=== PATIENT | male | born 1980 | race African-American/Black ===

== ENCOUNTER 2018-12-11 09:35 | Emergency (ER) | payer SELFPAY ==
[2018-12-11] MEDS ORDERED: IBUPROFEN 600 MG TABLET PO ONE (09:57)
[2018-12-11] MEDS ORDERED: BUTALB/ACETAMINOPHEN/CAFFEINE 1 TAB EACH PO ONE (09:57)
--- NOTE | 2018-12-11 10:05 | ER Document Report ---
HPI - HPI Time Seen by Provider: 12/11/18 09:57 Pain Level: 4 Notes: Patient is a [id number] male with past medical history of migraines presenting with 2-day migraine. Patient reports the migraine started the same as his usual headaches. He states that he usually takes Excedrin however this time is not knocked out the headache. He reports mild nausea, photophobia and phonophobia. He states that he usually gets these symptoms with his migraines. He denies any fever or chills, denies any neck pain. - REPRODUCTIVE Reproductive: DENIES: : - DERM Skin Color: Normal, [place] Past Medical History - General Information source: Patient - Social History Smoking Status: Never Smoker Frequency of alcohol use: None Drug Abuse: None Family History: Reviewed & Not Pertinent Patient has suicidal ideation: No Patient has homicidal ideation: No - Past Medical History Cardiac Medical History: Denies: Hx Coronary Artery Disease, Hx Heart Attack, Hx Hypertension Pulmonary Medical History: Denies: Hx Asthma, Hx Bronchitis, Hx COPD, Hx Pneumonia Neurological Medical History: Reports: Hx Migraine. Denies: Hx Cerebrovascular Accident, Hx Seizures Renal/ Medical History: Denies: Hx Peritoneal Dialysis Musculoskeletal Medical History: Denies Hx Arthritis Surgical Hx: Negative Past Surgical History: Denies: Hx Pacemaker - Immunizations Hx Diphtheria, Pertussis, Tetanus Vaccination: Yes Vertical Provider Document - CONSTITUTIONAL Notes: PHYSICAL EXAMINATION: GENERAL: Well-appearing, well-nourished and in no acute distress. HEAD: Atraumatic, normocephalic. EYES: Pupils equal round extraocular movements intact, conjunctiva are normal. ENT: Nares patent NECK: Normal range of motion, no nuchal rigidity. LUNGS: No respiratory distress, lung sounds clear and equal bilaterally. Musculoskeletal: Normal range of motion NEUROLOGICAL: Normal speech, normal gait, no focal neurological deficits noted. PSYCH: Normal mood, normal affect. SKIN: Warm, Dry, normal turgor, no rashes or lesions noted. - INFECTION CONTROL TRAVEL OUTSIDE OF THE [place] IN LAST 30 DAYS: No Course - Re-evaluation Re-evalutation: 12/11/18 10:06 Patient declines IV or IM medications, requesting oral medications. Orders will be placed for ibuprofen and Fioricet. Will reevaluate patient in pit with plan to DC home if headache improved after 30 minutes. Patient reports complete resolution of his headache. Patient requesting to be discharged home at this time. Vital signs are within normal limits. Discussed ED return precautions with patient and he verbalizes understanding and agreement with same. - Vital Signs Vital signs: Temp Pulse Resp BP Pulse Ox 97.8 F 51 L 18 136/55 H 98 12/11/18 09:40 12/11/18 09:40 12/11/18 09:40 12/11/18 09:40 12/11/18 09:40 Discharge - Discharge Clinical Impression: Migraine Condition: Stable Disposition: HOME, SELF-CARE Additional Instructions: You were seen today for a migraine headache. Please follow-up with your primary care doctor regarding today's ED visit. Return to emergency department immediately if you develop a headache that gets to its maximum severity within 20 minutes of onset, you pass out, you develop weakness, numbness, changes in your vision, become unable to keep any fluids down for more than 12 hours, or develop a fever greater than 100.4 degrees Fahrenheit. If you develop a similar migraine headache in the future I recommend that you immediately take 600 mg of ibuprofen and 50 mg of Benadryl and go to sleep as quickly as possible. This can often prevent your migraine headache from becoming severe. If the headache does not go away within 30 minutes you may also take 1 tablet of the Fioricet that I have prescribed. Prescriptions: Butalb/Acetaminophen/Caffeine [Fioricet (50-325-40 mg) Tablet] 1 tab PO Q4HP PRN #15 tab PRN Reason: Forms: Return to Work Referrals: LOCALMD,NO [NO LOCAL MD] - Follow up as needed
[2018-12-11 11:04] VITALS: BP 126/83
== END 2018-12-11 11:08 | disposition home or self-care (01) ==
LOC: ER 09:35
DX: G43.909 Migraine, unspecified, not intractable, without status migrainosus (principal); R11.0 Nausea; H53.149 Visual discomfort, unspecified
CPT/HCPCS: 99283; J3490